=== PATIENT | female | born 1945 | race Caucasian/White ===

== ENCOUNTER → 2024-01-25 | Outpatient (CLI) | payer MEDICARE, MEDICAID, SELFPAY ==
--- NOTE | 2024-01-25 15:52 | XR_ITS ---
Examination: AP lateral chest 2 views TECHNIQUE: Upright AP lateral chest 2 views Exam date and time: January 25, 2024 1714 hours INDICATIONS: Coughing SOB beginning 2 weeks ago. FINDINGS: No significant cardiac enlargement No pneumonia or pulmonary edema Mild increased AP dimension chest Moderate thoracic spondylosis IMPRESSION: No pneumonia or pulmonary edema
[2024-01-25 16:54] LABS: Basophils # (Auto) 0.1 Thou/mm3 (0.0-0.2); Basophils % (Auto) 1 % (0-2.5); Eosinophils # (Auto) 0.2 Thou/mm3 (0.0-0.5); Eosinophils % (Auto) 2 % (0-10); Hematocrit 36.7 % (36.0-46.0); Hemoglobin 11.8 g/dL (12.0-16.0); Immature Granulocytes % (Auto) 0 % (0-0); Immature Granulocytes Auto 0.04 Thou/mm3 (0.00-0.00); Lymphocytes # (Auto) 3.8 Thou/mm3 (1.0-4.8); Lymphocytes % (Auto) 38 % (10-50); Mean Corpuscular HGB Conc 32.2 g/dl (31.0-37.0); Mean Corpuscular Volume 93 fL (80-100); Monocytes # (Auto) 0.5 Thou/mm3 (0.0-0.8); Monocytes % (Auto) 5 % (0-12); Neutrophils # (Auto) 5.5 Thou/mm3 (1.8-7.7); Neutrophils % (Auto) 54 % (37-80); Nucleated Red Blood Cell % 0 /100 WBC (0); Platelet Count 274 Thou/mm3 (140-440); RDW Standard Deviation 44.7 fL (36.4-46.3); Red Blood Count 3.93 Miln/mm3 (4.00-5.20); White Blood Count 10.1 Thou/mm3 (3.6-11.0)
[2024-01-25 17:39] LABS: Alanine Aminotransferase 29 U/L (10-49); Albumin, Serum 3.6 gm/dL (3.4-4.8); Albumin/Globulin Ratio 1.2 (1.2-2.2); Alkaline Phosphatase 136 U/L (46-116); Anion Gap 7 (7-16); Aspartate Amino Transferase 45 U/L (0-34); BUN/Creatinine Ratio 19 Ratio (12-20); Bilirubin,Total 0.6 mg/dL (0.3-1.2); Blood Urea Nitrogen 21 mg/dL (9-23); Calcium 8.9 mg/dL (8.3-10.6); Calcium (Corrected) 9.2 mg/dL (8.5-10.1); Carbon Dioxide 21.1 mMol/L (20.0-31.0); Chloride 108 mMol/L (98-107); Creatinine (Component) 1.1 mg/dL (0.6-1.3); Globulin 2.9 gm/dL (2.3-3.5); Glucose 172 mg/dL (74-106); Osmolality,Calculated 278 (275-295); Sodium 136 mMol/L (136-145); Total Protein 6.5 gm/dL (5.7-8.2); eGFR 51 See Note
[2024-01-25 17:46] LABS: Glucose Estimated Average 137 mg/dL (80-131); Hemoglobin A1C 6.4 % Hgb (4.8-6.0)
== END | disposition home or self-care (01) ==
LOC: CDIM 15:50 → COPL 16:25
PROVIDERS: Physician Assistant; PCP Family Medicine; Referring Provider Nurse Practitioner; Visit Provider Radiology Diagnostic Radiology
DX: R05.9 Cough, unspecified (principal); N30.00 Acute cystitis without hematuria; I10 Essential (primary) hypertension; E11.65 Type 2 diabetes mellitus with hyperglycemia
CPT/HCPCS: 36415; 71046; 80053; 81001; 82043; 82570; 83036; 85025; 87086

== ENCOUNTER → 2024-02-02 | Outpatient (CLI) | payer MEDICARE, MEDICAID, SELFPAY ==
[2024-02-02 16:16] LABS: Collection Type, Urine Clean Catch
[2024-02-02 16:42] LABS: Bacteria,Urine 3+; Bilirubin,Urine Negative (Negative); Blood,Urine 1+ (Negative); Color,Urine Lt-Yellow (Lt Yel-Yel); Glucose, Urine Trace (Negative); Ketones,Urine Negative (Negative); Leukocyte Esterase,Urine Positive (Negative); Nitrite,Urine Positive (Negative); PH,Urine 5.5 (5.0-7.0); Protein,Urine 2+ (Neg - Trace); RBC,Urine 3 /hpf (0-3); Specific Gravity,Urine 1.007 (1.001-1.035); Squamous Epithelial Cell,Urine 4 /hpf (0-5); Urobilinogen,Urine Negative mg/dL (0.0-1.0); WBC,Urine 209 /hpf (0-5)
[2024-02-02 16:48] LABS: Clarity,Urine Hazy (Clear/Hazy)
== END | disposition home or self-care (01) ==
LOC: SLDO 15:48
PROVIDERS: PCP Nurse Practitioner; Referring Provider Nurse Practitioner; Visit Provider Nurse Practitioner
DX: N30.20 Other chronic cystitis without hematuria (principal); Z16.12 Extended spectrum beta lactamase (ESBL) resistance
CPT/HCPCS: 81001; 87077; 87086; 87186

== ENCOUNTER → 2024-02-10 | Outpatient (CLI) | payer MEDICARE, MEDICAID, SELFPAY ==
--- NOTE | 2024-02-10 14:03 | XR_ITS ---
Examination: Wrist, left 3 views Technique: Wrist AP, oblique, lateral 3 views Date and time of exam: February 10, 2024 1414 hours INDICATIONS: Wrist swelling and pain beginning 4 days ago. FINDINGS: Severe osteopenia Advanced narrowing radiocarpal joint Advanced osteoarthritis first carpometacarpal joint No acute fracture or avascular necrosis Old fracture distal radius IMPRESSION: Advanced osteoarthritis first carpometacarpal joint Significant osteoarthritis radiocarpal joint
[2024-02-10 16:25] LABS: Uric Acid 7.6 mg/dL (3.1-7.8)
== END | disposition home or self-care (01) ==
LOC: CDIM 13:56 → COPL 14:23
PROVIDERS: PCP Family Medicine; Referring Provider Nurse Practitioner; Visit Provider Radiology Diagnostic Radiology
DX: M18.12 Unilateral primary osteoarthritis of first carpometacarpal joint, left hand (principal); M19.032 Primary osteoarthritis, left wrist; M25.532 Pain in left wrist; R60.0 Localized edema
CPT/HCPCS: 36415; 73110; 84550

== ENCOUNTER 2024-04-04 10:55 | Emergency (ER) | payer MEDICARE, MEDICAID, SELFPAY ==
[2024-04-04] VITALS (9 sets, daily range): BP systolic 142–194; BP diastolic 64–86; PULSE 58–87; RESP 17–19; TEMP 36.8–37.7; O2SAT 95–99; BMI 31.7
--- NOTE | 2024-04-04 10:58 | PD.EDADULT ---
ED General RME/HPI General Chief complaint: Abdominal Pain Stated complaint: N/V Time Seen by Provider: 04/04/24 10:56 Arrival date/time: 04/04/24 10:55 CC: Generalized weakness HPI ongoing for approximately 1 week EMS reports stable vital signs and route. Patient also has a history of recurrent UTIs. Denies chest pain shortness of breath difficulty breathing. Patient does have a nonproductive cough. Related Data Home Medications ?Medication ?Instructions ?Recorded ?Confirmed benzonatate 100 mg capsule 100 mg PO TID 12/19/17 06/03/18 diltiazem HCl 120 mg tablet 120 mg PO BID 12/19/17 04/04/24 losartan 50 mg tablet 50 mg PO QDAY 12/19/17 04/04/24 metformin 1,000 mg tablet 1,000 mg PO BID 12/19/17 04/04/24 spironolactone 25 mg tablet 25 mg PO QDAY 12/19/17 06/03/18 torsemide 20 mg tablet 20 mg PO QDAY 12/19/17 06/03/18 tramadol 50 mg tablet 50 mg PO BID 12/19/17 06/03/18 venlafaxine 150 mg tablet,extended 150 mg PO QDAY 12/19/17 04/04/24 release 24 hr albuterol sulfate 90 mcg/actuation 2 puff inhalation BID PRN 12/30/17 06/03/18 breath activated powder inhaler Shortness Of Breath Or Wheezing gabapentin 600 mg tablet 600 mg PO TID 12/30/17 04/04/24 cholecalciferol (vitamin D3) 25 1,000 unit PO QDAY 06/03/18 06/03/18 mcg (1,000 unit) capsule (Vitamin D3) cyclobenzaprine 5 mg tablet 5 mg PO BID PRN Muscle Spasm 06/03/18 06/03/18 ferrous sulfate 325 mg (65 mg 325 mg PO QDAY 06/03/18 06/03/18 iron) tablet montelukast 10 mg tablet 10 mg PO QPM 06/03/18 06/03/18 furosemide 40 mg tablet 40 mg PO BID 04/04/24 04/04/24 Previous Rx's ?Medication ?Instructions ?Recorded glyburide 2.5 mg tablet 2.5 mg PO BID #30 tabs 06/03/18 ciprofloxacin HCl 500 mg tablet 500 mg PO BID #14 tabs 04/04/24 Allergies Allergy/AdvReac Type Severity Reaction Status Date / Time codeine Allergy Severe Nausea Verified 04/04/24 12:53 morphine Allergy Severe Anaphylaxis Verified 04/04/24 12:53 Review of Systems Review of Systems Narrative Review of Systems: GEN: No fever, no chills, no weight loss EYES: No discharge, no visual changes, no pain HEENT: No ear pain, no congestion, no sore throat PULM: No shortness of breath, no cough, no congestion CV: No chest pain, no dyspnea on exertion, no palpitations GI: No nausea, no vomiting, no diarrhea, no pain, no constipation : No frequency, no urgency, no dysuria MUSC/SKEL: No joint pain, no back pain SKIN: No rash PSYCH: No hallucinations, no depression HEME/LYMPH: No easy bleeding or bruising tendencies NEURO: + weakness, no headache Past Medical History Past Medical History NEUROLOGIC: Positive Peripheral Neuropathy; Negative Seizures CARDIAC: Positive Hypertension; Negative Congestive Heart Failure RESPIRATORY: Positive Chronic Obstructive Pulmonary Disease (COPD) GENITOURINARY: Negative Renal Disease MUSCULOSKELETAL: Positive Musculoskeletal Disorders ENDOCRINE: Positive Diabetes Mellitus Type 2; Negative Diabetes Mellitus Type 1 HEMATOLOGIC: Positive Anemia OTHER HISTORY: Positive Autoimmune Disease, Falls and Blood Transfusions; Negative Blood Transfusion Reaction or Anesthesia Reactions Surgical History SURGICAL: Positive Gastric Bypass Surgery Social History SMOKING STATUS: Former smoker SUBSTANCE USE: does not use ED Exam Narrative Physical exam: [General: Obese in mild discomfort but not in any acute distress Head normocephalic HEENT: Within acceptable limits Neck is supple nontender Chest equal chest rise nontender to palpation Respiratory: Left basilar crackles, clear in the upper lobes, no wheezing. CV: Rate rhythm is regular no murmurs rubs or clicks Abdomen is distended secondary to body habitus soft nontender no masses positive bowel sounds all 4 quadrants Back: No CVA tenderness no spinous process tenderness from cervical spine thoracic and lumbar spine Skin: Intact no petechiae rash induration ulceration or crepitus Extremities: Moving all extremity against resistance cap refill less than 2 seconds neurosensory intact. Lower EXTR no lower extremity edema Neuro: Awake alert oriented x3 Glascow coma 15 no focal deficits] Course Quality Measures none Orders Category Date Time Status Bedside COVID-19 Antigen Test NOW Care 04/04/24 10:56 Completed Bedside Influenza A&B Antigen Test NOW Care 04/04/24 10:[address] abdomen pelvis wo con Stat Exams 04/04/24 13:26 Completed XR chest 1V Stat Exams 04/04/24 11:15 Completed CBC Stat Lab 04/04/24 11:54 Completed CMP [Comprehensive Metabolic Panel] Stat Lab 04/04/24 11:54 Completed Urinalysis Stat Lab 04/04/24 12:19 Completed Urinalysis, C/S if Indicated Stat Lab 04/04/24 12:19 Completed Urine Culture Stat Lab 04/04/24 12:19 Received Acetaminophen Tab [Tylenol Tab] Med 04/04/24 16:12 Discontinued 650 mg PO X1 ONE CIPROFLOXACIN/D5w 400 MG IVPB [Cipro Ivpb] Med 04/04/24 13:05 Discontinued 400 mg in 200 ml IV X1 Ketorolac Inj [Toradol Inj] Med 04/04/24 15:02 Discontinued 15 mg IVP X1 ONE Sodium Chloride 0.9% 1000 ml [Ns] 1,000 ml Med 04/04/24 13:04 Discontinued IV 999 mls/hr hydrALAZINE INJ [Apresoline Inj] Med 04/04/24 14:25 Discontinued 20 mg IV X1 ONE Vital Signs Vital signs: Vital Signs Temperature 98.3 F 04/04/24 11:00 Pulse Rate 86 04/04/24 11:00 Respiratory Rate 19 04/04/24 11:00 Blood Pressure 194/64 H 04/04/24 11:00 Pulse Oximetry (%) 99 04/04/24 11:00 Oxygen Delivery Method Room Air 04/04/24 11:00 [facility] Patient data External records reviewed:: [facility] previous records and EMS form Clinical information provided by:: patient and EMS Social determinants that could affect healthcare access:: none Patient has the following chronic illnesses:: Recurrent UTIs micro results shows Klebsiella with resistance to multiple medications. How is presenting disease/condition affected by chronic disease/condition?: uneffected by Evaluation data The following diagnostics were reviewed and interpreted by me:: lab results and radiology exam(s) Lab and/or radiology exams considered but not ordered:: CBC shows mild leukocytosis, no anemia thrombocytopenia CMP shows no significant significant electrolyte imbalances creatinine of 1.4 BUN is normal no transaminitis or T. bili elevation Urine is grossly infected Review of the culture and sensitivity of urine shows the patient has Klebsiella positive that is susceptible to ciprofloxacin. CT of the abdomen shows the patient has a adrenal adenoma but no other acute finding requires emergent or immediate intervention. Interpretation Summary: Urinary tract infection patient will be discharged home on Cipro to follow-up with her PCP. Medications Medications considered but not ordered:: None Medication administrations:: Medication Administration History Discontinued Medications Acetaminophen (Acetaminophen 325 Mg Tablet) 650 mg PO X1 ONE Stop: 04/04/24 16:13 Last Admin: 04/04/24 16:17 Dose: 650 mg Documented By: Hydralazine HCl (Hydralazine Inj 20 Mg/Ml Vial) 20 mg IV X1 ONE Stop: 04/04/24 14:26 Last Admin: 04/04/24 14:47 Dose: Not Given Documented By: Non-Admin Reason: Contraindicated Sodium Chloride (Ns) 1,000 mls @ 999 mls/hr IV .Q1H1M ONE Stop: 04/04/24 14:04 Last Infusion: 04/04/24 17:53 Dose: Infused Documented By: Admin: 04/04/24 13:24 Dose: 999 mls/hr Documented By: Ciprofloxacin/Dextrose (Cipro Ivpb) 400 mg in 200 mls @ 200 mls/hr IV X1 ONE Stop: 04/04/24 14:04 Last Infusion: 04/04/24 17:53 Dose: Infused Documented By: Admin: 04/04/24 13:24 Dose: 200 mls/hr Documented By: Ketorolac Tromethamine (Ketorolac Inj 30 Mg/Ml Vial) 15 mg IVP X1 ONE Stop: 04/04/24 15:03 Last Admin: 04/04/24 16:11 Dose: Not Given Documented By: Non-Admin Reason: Contraindicated None Consultations Consultation(s) initiated? (list below): No Diagnosis Differential Diagnosis ED Complaint MDM: UTI diverticulitis diverticulosis pyelonephritis Most likely diagnosis given after review of the tests above:: UTI Admission Indicated Admission indicated?: not indicated Explain why admission is indicated or not indicated:: Stable for discharge Admission Request Was there a request for admission?: No Disposition Plan Disposition Plan: Discharge Discharge Attestation Discharge Attestation: The patient and all family members were given an opportunity to ask questions and understood the discharge instructions. Discharge instructions specifically effects, indications for sooner follow up or return to the emergency department, and the expected course of current diagnosis. Patient condition: Stable Medical Decision Making Differential Diagnosis Differential Diagnosis: UTI diverticulitis diverticulosis pyelonephritis Lab Data 04/04/24 11:54 04/04/24 11:54 Labs: Lab Results 04/04/24 04/04/24 Range/Units 11:54 12:19 WBC 12.3 H (3.6-11.0) Thou/mm3 RBC 4.42 (4.00-5.20) Miln/mm3 Hgb 13.0 (12.0-16.0) g/dL Hct 40.1 (36.0-46.0) % MCV 91 (80-100) fL MCH 29.4 (25.0-35.0) pg MCHC 32.4 (31.0-37.0) g/dl RDW Std Deviation 45.1 (36.4-46.3) fL Plt Count 281 (140-440) Thou/mm3 Neut % (Auto) 76 (37-80) % Lymph % (Auto) 15 (10-50) % [place] % (Auto) 8 (0-12) % Eos % (Auto) 0 (0-10) % Baso % (Auto) 0 (0-2.5) % Neut # (Auto) 9.4 H (1.8-7.7) Thou/mm3 Lymph # (Auto) 1.8 (1.0-4.8) Thou/mm3 [place] # (Auto) 1.0 H (0.0-0.8) Thou/mm3 Eos # (Auto) 0.0 (0.0-0.5) Thou/mm3 Baso # (Auto) 0.1 (0.0-0.2) Thou/mm3 Immature Gran # (Auto) 0.05 H (0.00-0.00) Thou/mm3 Absolute Nucleated RBC 0.00 (0.00-0.00) Thou/mm3 Immature Gran % 0 (0-0) % Nucleated RBC % 0 (0) /100 WBC Sodium 137 (136-145) mMol/L Potassium 3.8 (3.4-5.1) mMol/L Chloride 103 (98-107) mMol/L Carbon Dioxide 22.7 (20.0-31.0) mMol/L Anion Gap 11 (7-16) BUN 16 (9-23) mg/dL Creatinine 1.4 H (0.6-1.3) mg/dL Estim Creat Clear Calc 34.1 L (>60) mL/min eGFR 38 L (60 - ) See Note BUN/Creatinine Ratio 11 L (12-20) Ratio Glucose 247 H (74-106) mg/dL Calculated Osmolality 283 (275-295) Calcium 8.9 (8.3-10.6) mg/dL Corrected Calcium 9.2 (8.5-10.1) mg/dL Total Bilirubin 0.9 (0.3-1.2) mg/dL AST 18 (0-34) U/L ALT 7 L (10-49) U/L Alkaline Phosphatase 96 (46-116) U/L Total Protein 6.7 (5.7-8.2) gm/dL Albumin 3.6 (3.4-4.8) gm/dL Globulin 3.1 (2.3-3.5) gm/dL Albumin/Globulin Ratio 1.2 (1.2-2.2) Ur Collection Type Clean Catch Urine Color Yellow (Lt Yel-Yel) Urine Clarity Hazy (Clear/Hazy) Urine pH 6.0 (5.0-7.0) Ur Specific [place] 1.025 (1.001-1.035) Urine Protein 3+ A (Neg - Trace) Urine Glucose (UA) 1+ A (Negative) Urine Ketones Trace (Negative) Urine Blood 3+ A (Negative) Urine Nitrite Negative (Negative) Urine Bilirubin 1+ A (Negative) Urine Urobilinogen (Auto) 0.2 (0.0-1.0) mg/dL Ur Leukocyte Esterase Trace (Negative) Urine RBC 10 H (0-3) /hpf Urine WBC 50 H (0-5) /hpf Ur Squamous Epith Cells 0 (0-5) /hpf Urine Bacteria 1+ A (None) Ur Culture Indicated? Yes Discharge Plan Plan Patient Disposition: HOME (Self Care) Patient condition on transfer: Stable Prescriptions/Referrals Prescriptions/Med Rec: New ciprofloxacin HCl 500 mg tablet 500 mg PO BID Qty: 14 0RF No Action losartan 50 mg Tablet 50 mg PO QDAY torsemide 20 mg Tablet 20 mg PO QDAY tramadol 50 mg Tablet 50 mg PO BID spironolactone 25 mg Tablet 25 mg PO QDAY diltiazem HCl 120 mg Tablet 120 mg PO BID benzonatate 100 mg Capsule 100 mg PO TID metformin 1,000 mg Tablet 1,000 mg PO BID venlafaxine 150 mg Tablet Extended Release 24 Hr 150 mg PO QDAY gabapentin 600 mg Tablet 600 mg PO TID albuterol sulfate 90 mcg/actuation Aerosol Powdr Breath Activated 2 puff INHALATION BID PRN (Reason: Shortness Of Breath Or Wheezing) ferrous sulfate 325 mg (65 mg iron) Tablet 325 mg PO QDAY montelukast 10 mg Tablet 10 mg PO QPM cholecalciferol (vitamin D3) [Vitamin D3] 1,000 unit Capsule 1,000 unit PO QDAY cyclobenzaprine 5 mg Tablet 5 mg PO BID PRN (Reason: Muscle Spasm) glyburide 2.5 mg tablet 2.5 mg PO BID Qty: 30 0RF furosemide 40 mg Tablet 40 mg PO BID Referrals: Diego Chacon MD [Primary Care Provider] - In 1 week Problem List Clinical Impression: Urinary tract infection Patient/Caregiver Discharge Instructions Education Materials: Urinary Tract Infections in Women Additional Instructions: Take the antibiotics as prescribed. Follow-up with your primary care provider. If there is worsening of symptoms return the emergency room for reevaluation. Print Language: Upper Sorbian Stand Alone Forms: Mariana Award Info., Work/School Release, Patient Portal Info Letter PA/ALDA Supervising Physician PA/RISK MANAGEMENT SPECIALIST Supervising Physician: Vic العلي ENP
--- NOTE | 2024-04-04 11:15 | XR_ITS ---
Examination: AP chest single view Technique one AP portable upright chest single view Exam date and time: April 04, 1999 2511.3 hours Comparison February 24, 2024 INDICATIONS: Coughing left base FINDINGS: Mild enlargement left ventricle No pneumonia or pulmonary edema Prominent osteopenia IMPRESSION: No pneumonia or pulmonary edema
[2024-04-04 12:00] LABS: Basophils # (Auto) 0.1 Thou/mm3 (0.0-0.2); Basophils % (Auto) 0 % (0-2.5); Eosinophils % (Auto) 0 % (0-10); Hematocrit 40.1 % (36.0-46.0); Immature Granulocytes % (Auto) 0 % (0-0); Immature Granulocytes Auto 0.05 Thou/mm3 (0.00-0.00); Lymphocytes # (Auto) 1.8 Thou/mm3 (1.0-4.8); Lymphocytes % (Auto) 15 % (10-50); Mean Corpuscular HGB Conc 32.4 g/dl (31.0-37.0); Mean Corpuscular Hemoglobin 29.4 pg (25.0-35.0); Mean Corpuscular Volume 91 fL (80-100); Monocytes % (Auto) 8 % (0-12); Neutrophils # (Auto) 9.4 Thou/mm3 (1.8-7.7); Neutrophils % (Auto) 76 % (37-80); Nucleated Red Blood Cell % 0 /100 WBC (0); Platelet Count 281 Thou/mm3 (140-440); RDW Standard Deviation 45.1 fL (36.4-46.3); Red Blood Count 4.42 Miln/mm3 (4.00-5.20); White Blood Count 12.3 Thou/mm3 (3.6-11.0)
--- NOTE | 2024-04-04 12:00 | PC.NURSE ---
PT HAD BM UPON ARRIVAL AND SOILED SELF WITH URINE; PT GIVEN PERINEAL CARE WITH WARM BATH CLOTHS AND LINEN CHANGE PERFORMED FOR PT.
[2024-04-04 12:27] LABS: Collection Type, Urine Clean Catch; Squamous Epithelial Cell,Urine 0 /hpf (0-5)
[2024-04-04 12:30] LABS: Bilirubin,Urine 1+ (Negative); Blood,Urine 3+ (Negative); Color,Urine Yellow (Lt Yel-Yel); Glucose, Urine 1+ (Negative); Ketones,Urine Trace (Negative); Leukocyte Esterase,Urine Trace (Negative); Nitrite,Urine Negative (Negative); Protein,Urine 3+ (Neg - Trace); Specific Gravity,Urine 1.025 (1.001-1.035); Urobilinogen,Urine 0.2 mg/dL (0.0-1.0)
[2024-04-04 12:32] LABS: Alanine Aminotransferase 7 U/L (10-49); Albumin, Serum 3.6 gm/dL (3.4-4.8); Albumin/Globulin Ratio 1.2 (1.2-2.2); Alkaline Phosphatase 96 U/L (46-116); Anion Gap 11 (7-16); Aspartate Amino Transferase 18 U/L (0-34); BUN/Creatinine Ratio 11 Ratio (12-20); Bilirubin,Total 0.9 mg/dL (0.3-1.2); Blood Urea Nitrogen 16 mg/dL (9-23); Calcium 8.9 mg/dL (8.3-10.6); Calcium (Corrected) 9.2 mg/dL (8.5-10.1); Carbon Dioxide 22.7 mMol/L (20.0-31.0); Chloride 103 mMol/L (98-107); Creatinine (Component) 1.4 mg/dL (0.6-1.3); Estimated Creatinine Clearance 34.1 mL/min (>60); Globulin 3.1 gm/dL (2.3-3.5); Glucose 247 mg/dL (74-106); Osmolality,Calculated 283 (275-295); Potassium 3.8 mMol/L (3.4-5.1); Sodium 137 mMol/L (136-145); Total Protein 6.7 gm/dL (5.7-8.2); eGFR 38 See Note
[2024-04-04 12:39] LABS: Clarity,Urine Hazy (Clear/Hazy)
[2024-04-04 12:40] LABS: Bacteria,Urine 1+; Culture Indicated,Urine Yes; WBC,Urine 50 /hpf (0-5)
[2024-04-04 12:41] LABS: RBC,Urine 10 /hpf (0-3)
[2024-04-04] MEDS: SODIUM CHLORIDE 0.9% 1000 ML 1,000 ML 999 ML IV (13:24)
[2024-04-04] MEDS: CIPROFLOXACIN/D5w 400 MG IVPB 400 MG/200 ML BAG 200 MG IV (13:24)
--- NOTE | 2024-04-04 13:26 | XR_ITS ---
Examination: CT abdomen and pelvis without contrast. Coronal 3-D reconstructions. Sagittal 2-D reconstructions. Date and time of exam:April 04, 2024 at 1440 hours INDICATIONS: Onset generalized abdominal pain today CTDI: vol (mGy): 16.2 DLP: (mGycm): 1000 Technique: Axial images of the abdomen have been obtained, 3 mm slice thickness Intravenous contrast material has not been administered. Low dose protocols were performed. One or more of the following dose reduction techniques were used; automated exposure control, adjustment of the mA and/or KV according to patient size, use of iterative reconstruction technique. Findings: Diffuse fatty infiltration throughout the liver, no focal liver lesions, the liver is mildly irregular in contour. Transverse dimension of the liver is prominent Spleen is not enlarged Absent gallbladder No pancreatic mass Minimal 8mm fat-containing left adrenal nodule image 58 Minimal perinephric stranding Mild to moderate bilateral renal parenchymal scar formation No renal or ureteral calculi, no hydronephrosis Abdominal aortic calcification no aneurysmal dilatation Normal appendix No bowel obstruction Scattered colonic diverticulosis Atrophic uterus which is retroverted No pelvic mass Air droplets in the urinary bladder Severe osteopenia Advanced disc narrowing L5-S1 Moderate narrowing hip joints IMPRESSION: Suspect primary hepatocellular disease 8 mm left adrenal adenoma Mild to moderate bilateral renal parenchymal scar formation, no renal or ureteral calculi, no hydronephrosis Normal appendix Scattered colonic diverticulosis, no diverticulitis
[2024-04-04] MEDS: ACETAMINOPHEN 325 MG TABLET 650 MG PO (16:17)
== END 2024-04-04 19:04 | disposition home or self-care (01) ==
PROVIDERS: Registered Nurse General Practice; Emergency Provider Emergency Medicine; PCP Family Medicine
DX: N39.0 Urinary tract infection, site not specified (principal)
CPT/HCPCS: 51701; 36415; 71045; 74176; 80053; 81001; 85025; 87077; 87086; 87186; 87400; 87811; 96365; 96366; 99284; J0744; J7030; A9270